=== PATIENT | female | born 1950 | race Caucasian/White ===

== ENCOUNTER 2019-02-01 22:01 | Emergency (ER) | payer OTHER ==
[~2019-02-01] VITALS: Ht 175.3 cm; Wt 128.8 kg
[2019-02-01 23:31] LABS: RBC 4.99 mil/uL (4.20-5.00)
[2019-02-01 23:36] LABS: HEMATOCRIT 48.3 % (37.0-47.0); HEMOGLOBIN 16.4 gm/dL (12.0-15.0); MCH 32.9 pg (26.0-34.0); MCV 96.8 fL (80.0-100.0); PLATELET COUNT 228 thou/uL (150-400); RDW 13.2 % (10.5-14.5); WBC 6.8 thou/uL (4.0-11.0)
[2019-02-01 23:39] LABS: ANION GAP 14 mmol/L (7-16); BUN 17 mg/dL (7-18); CALCIUM 9.5 mg/dL (8.5-10.1); CHLORIDE 103 mmol/L (98-107); CO2 25 mmol/L (21-32); GLUCOSE 104 mg/dL (74-106); POTASSIUM 3.4 mmol/L (3.5-5.1); SODIUM 142 mmol/L (136-145)
[2019-02-01 23:48] LABS: TROPONIN-I <0.06 ng/mL (<0.06)
[2019-02-02 00:41] LABS: PLATELET ESTIMATE NORMAL
[2019-02-02] MEDS ORDERED: METHOCARBAMOL500 M2 PO (02:34)
[2019-02-02] MEDS ORDERED: LYRICA100 MG PO (02:34)
[2019-02-02] MEDS ORDERED: LOPRESSOR100 M1 PO (02:34)
[2019-02-02 02:55] VITALS: BP 139/89
--- NOTE | 2019-02-02 08:21 | EKG ---
[place] [address] [facility] [place] [address] ELECTROCARDIOGRAM REPORT Name: CANDI COLEMAN [facility] [id number] Admission: 02/01/19 Attend Phys: Discharge: 02/02/19 Date of : 54 Report #: [id number] THIS REPORT FOR: //name// [facility] ED Test Date: 2019-02-01 Test Time: 22:22:59 Pat Name: CANDI COLEMAN Department: Room: Gender: F Human Resources Services Specialist: : 1950 Requested By: Naman Molina Order Number: [id number] MD: Eddie Marcos Measurements Intervals [place] Rate: 96 P: DC: QRS: -33 QRSD: 121 T: 99 QT: 399 QTc: 505 Interpretive Statements Sinus rhythm IVCD, consider atypical RBBB Nonspecific T abnormalities, lateral leads No previous ECG available for comparison Electronically Signed On 02-02-2019 8:21:30 CDT by Eddie Marcos [email or web address] <ELECTRONICALLY SIGNED> By: Eddie Marcos MD, [facility] 02/02/19 08 21 2222 Eddie Marcos MD, FACC /EPI
== END 2019-02-02 03:04 | disposition home or self-care (01) ==
LOC: ER 22:01
PROVIDERS: Emergency Medicine
DX: R07.89 Other chest pain (principal); E78.00 Pure hypercholesterolemia, unspecified; I10 Essential (primary) hypertension; M54.9 Dorsalgia, unspecified; G89.29 Other chronic pain; Z96.652 Presence of left artificial knee joint; Z88.8 Allergy status to other drugs, medicaments and biological substances

== ENCOUNTER 2019-04-04 03:23 | Emergency (ER) | payer OTHER ==
[~2019-04-04] VITALS: Ht 175.3 cm; Wt 111.1 kg
--- NOTE | ~2019-04-04 | EMS ---
[address] [address] EMS Patient Care Report Name: CANDI COLEMAN Room #: DEP DOROTHY Rivas#: [id number] Admission: 04/04/19 Attend Phys: Discharge: 04/04/19 Date of : 54 Report #: [id number] THIS REPORT FOR: //name// Report Transmitted: 04/05/2019 05:14 EMS Care Summary [place], [place]/[facility] Incident [id number] @ 04/04/2019 02:41 Incident Location [address] [place] [address] Patient CANDI COLEMAN Female, 68 Years 1950 Patient Address [address] [place] [address] Patient History Hypertension,Chronic Pain, Patient Allergies Diphenhydramine,Oxycodone,Gabapentin, Patient Medications Tramadol, Lopressor, Lyrica, Chief Complaint My chest and shoulder hurt Disposition Transported No Lights/[place] Dispatch Reason Chest Pain (Non-Traumatic) Transported To [facility] Narrative chest pain headaches nausea left arm [address] [address] EMS Patient Care Report Name: CANDI COLEMAN [facility] ME[facility].#: [id number] Admission: 04/04/19 Attend Phys: Discharge: 04/04/19 Date of : 54 Report #: [id number] shoulder armpit down to elbow shoulder blades worse takes a deep breath or moves it Called to the scene for CP. Upon arrival, pt was GARCIA x 3 sitting on a chair in the kitchen. She c/o the following listed above going on for several days and some for a few weeks. She now decided she needed to go to the hospital by an ambulance to get checked out. Pt was assisted to the EMS cot and loaded into the ambulance w/o incident. Vitals and 12 lead obtained. Attempted IV x 2. Vitals repeated. En route: no changes. RR to [facility] ER. Arrived: pt taken to ER #9 and moved to their bed w/o incident. Pt care & report to ER staff. Initial Vitals @03:02P: 86,R: 19,SpO2: 98, @03:08P: 78,R: 47,SpO2: 97, @03:05P: 79,R: 33,SpO2: 99, @03:05P: 81,Pain: 6/10,[place] Suspected: false @03:07P: 78,R: 37,SpO2: 97, @03:03P: 77,R: 18,BP: 97/64,Pain: 6/10,GCS: 15,Glucose: 181,SpO2: 96,Revised Trauma: 12, @02:54P: 93,R: 14,BP: 112/71,Pain: 6/10,GCS: 15,CO: 1,SpO2: 97,Revised Trauma: 12, Assessments @02:49MENTAL:Person Oriented,Time Oriented,Place Oriented,Event Oriented,SKIN:HEENT:LUNG SOUNDS:General: Nausea,ABDOMEN:General: Nausea,PELVIS//GI:EXTREMITIES:Left Arm: SHELIA,Left Arm: SHELIA,Left Arm: SHELIA,Right Arm: No Abnormalities,Left Leg: No Abnormalities,Right Leg: No Abnormalities,PULSE:Radial: 2+ Normal,NEURO: Impression Chest pain on breathing Procedures @03:0512-Lead ECGResponse: UnchangedSucceeded@03:0212-Lead ECGResponse: UnchangedSucceeded@02:49ALS AssessmentResponse: UnchangedSucceeded@03:293-Lead ECGResponse: UnchangedSucceeded@02:52StretcherResponse: Unchanged@03:30Saline Lock cc (18 ga) Site: Antecubital-LeftResponse: UnchangedFailed@03:31Saline Lock cc (18 ga) Site: Forearm-LeftResponse: UnchangedFailed Timeline 02:39,Call Received 02:39,Dispatch Notified 02:41,Dispatched 02:43,[place] [address] EMS Patient Care Report Name: CANDI COLEMAN Room #: [facility] DOROTHY Rivas#: [id number] Admission: 04/04/19 Attend Phys: Discharge: 04/04/19 Date of : 54 Report #: [id number] 02:48,On Scene 02:49,At Patient 02:49,ALS Assessment,Response: UnchangedSucceeded, 02:52,Stretcher,Response: Unchanged 02:54,BP: 112/71 M,PULSE: 93,RR: 14 R,SPO2: 97 Ox,ETCO2: ,BG: ,PAIN: 6,GCS: 15, 03:02,12-Lead ECG,Response: UnchangedSucceeded, 03:02,BP: / M,PULSE: 86,RR: 19 R,SPO2: 98 Ox,ETCO2: ,BG: ,PAIN: ,GCS: , 03:03,BP: 97/64 M,PULSE: 77,RR: 18 R,SPO2: 96 Ox,ETCO2: ,B,PAIN: 6,GCS: 15, 03:05,Depart Scene 03:05,BP: / M,PULSE: 79,RR: 33 R,SPO2: 99 Ox,ETCO2: ,BG: ,PAIN: ,GCS: , 03:05,12-Lead ECG,Response: UnchangedSucceeded, 03:05,BP: / M,PULSE: 81,RR: R,SPO2: Ox,ETCO2: ,BG: ,PAIN: 6,GCS: , 03:07,BP: / M,PULSE: 78,RR: 37 R,SPO2: 97 Ox,ETCO2: ,BG: ,PAIN: ,GCS: , 03:08,BP: / M,PULSE: 78,RR: 47 R,SPO2: 97 Ox,ETCO2: ,BG: ,PAIN: ,GCS: , 03:17,At Destination 03:29,3-Lead ECG,Response: UnchangedSucceeded, 03:30,Saline Lock cc 18 ga Site: Antecubital-Left,Response: UnchangedFailed, 03:31,Saline Lock cc 18 ga Site: Forearm-Left,Response: UnchangedFailed, 03:33,Call Closed Disclaimer v1.1 Copyright 2019 [employer] This EMS Care Summary contains data elements from the applicable legal record (which may be displayed differently). It is designed to provide pertinent information for the following purposes: continuity of care, clinical quality, and state data reporting. The complete legal record is available to ED staff and administrators of the receiving hospital in [employer]'s Patient Tracker. All data is provided "as is."
[~2019-04-04 03:23] MED LIST: LOPRESSOR100 M1 PO; LYRICA100 MG PO; METHOCARBAMOL500 M2 PO
[2019-04-04 03:51] LABS: ABSOLUTE NEUTROPHILS 3.7 thou/uL (1.4-8.2); BASOPHILS 0.7 % (0.0-2.0); HEMATOCRIT 42.6 % (37.0-47.0); HEMOGLOBIN 14.1 gm/dL (12.0-15.0); LYMPHOCYTES 28.3 % (24.0-44.0); MCH 32.7 pg (26.0-34.0); MONOCYTES 8.8 % (1.0-8.0); PLATELET COUNT 175 thou/uL (150-400); POLYS 61.2 % (36.0-66.0); RDW 13.9 % (10.5-14.5); WBC 6.1 thou/uL (4.0-11.0)
[2019-04-04 03:57] LABS: CALCIUM 8.4 mg/dL (8.5-10.1); CREATININE 1.2 mg/dL (0.6-1.0); POTASSIUM 3.1 mmol/L (3.5-5.1)
[2019-04-04 04:07] LABS: ALBUMIN 3.1 g/dL (3.4-5.0); DIRECT BILIRUBIN 0.1 mg/dL (<0.1-0.3); TOTAL BILIRUBIN 0.5 mg/dL (<0.1-1.0); TOTAL PROTEIN 6.7 g/dL (6.4-8.2); TROPONIN-I 0.06 ng/mL (<0.06)
[2019-04-04] MEDS ORDERED: MOBIC15 MG PO (06:31)
[2019-04-04 06:45] VITALS: BP 100/63
--- NOTE | 2019-04-04 11:51 | EKG ---
[facility] [address] [place] [address] ELECTROCARDIOGRAM REPORT Name: JAREDKIERRACANDI [facility] [id number] Admission: 04/04/19 Attend Phys: Discharge: 04/04/19 Date of : 54 Report #: [id number] THIS REPORT FOR: //name// [facility] ED Test Date: 2019-04-04 Test Time: 03:40:56 Pat Name: CANDI COLEMAN Department: Room: Gender: F General Internal Medicine Doctor: : 1950 Requested By: Catrachita Bianchi Order Number: [id number] MD: Eddie Marcos Measurements Intervals [place] Rate: 70 P: 42 IN: 139 QRS: -27 QRSD: 111 T: 10 QT: 435 QTc: 470 Interpretive Statements Sinus rhythm Borderline left axis deviation Poor R wave progression Compared to ECG 02/01/2019 22:22:59 Low QRS voltage now present No significant change was found Electronically Signed On 04-04-2019 11:51:03 CDT by Eddie Marcos [email or web address] <ELECTRONICALLY SIGNED> By: Eddie Marcos MD, [facility] 04/04/19 1151 0340 0340 Eddie Marcos MD, FAC /EPI
== END 2019-04-04 06:45 | disposition home or self-care (01) ==
LOC: ER 03:23
PROVIDERS: Emergency Medicine
DX: R07.9 Chest pain, unspecified (principal); E78.00 Pure hypercholesterolemia, unspecified; Z96.652 Presence of left artificial knee joint; Z88.8 Allergy status to other drugs, medicaments and biological substances